=== PATIENT | male | born 1975 | race Caucasian/White ===

== ENCOUNTER 2020-08-14 11:54 | Observation (INO) | payer OTHER ==
[~2020-08-14] VITALS: Ht 185.4 cm; Wt 81.6 kg
[2020-08-14 12:14] LABS: HEMOGLOBIN 13.7 gm/dl (14.0-17.5); RED BLOOD COUNT 4.9 M/UL (4.20-5.50); WHITE BLOOD COUNT 8.3 K/UL (4.5-11.0)
[2020-08-14 12:42] LABS: BUN/CREATININE RATIO 16 (0-10)
[2020-08-14] MEDS ORDERED: MELOXICAM15 MG PO (16:47)
[2020-08-15 01:30] LABS: RED BLOOD COUNT 4.66 M/UL (4.20-5.50)
[2020-08-15 01:33] LABS: WHITE BLOOD COUNT 4.9 K/UL (4.5-11.0)
[2020-08-15 02:02] LABS: BUN/CREATININE RATIO 10 (0-10)
[2020-08-15] MEDS ORDERED: PROTONIX 40 MG40 M1 PO (09:20)
[2020-08-15] MEDS ORDERED: TYLENOL 8 HOUR650 MG PO (11:56)
[2020-08-15] MEDS ORDERED: VOLTAREN ARTHRI20 GM TOP (11:56)
== END 2020-08-15 13:37 | disposition home or self-care (01) ==
LOC: ER1 11:54 → CDU 15:16 → M/S 16:46
PROVIDERS: Physician Assistant; ADMIT Internal Medicine
DX: R07.89 Other chest pain (principal); R10.11 Right upper quadrant pain; K21.9 Gastro-esophageal reflux disease without esophagitis; R74.01 Elevation of levels of liver transaminase levels; Z20.822 Contact with and (suspected) exposure to COVID-19; Z79.899 Other long term (current) drug therapy
CPT/HCPCS: 36415; 71045; 80053; 82550; 82553; 83690; 83874; 84484; 85025; 85379; 93005; 96374; 96375; 99285; C9113; G0378; J2270; J2405; J7030; U0002